=== PATIENT | female | born 1950 | race Caucasian/White ===

== ENCOUNTER 2023-09-20 17:43 | Emergency (ER) | payer MEDICARE, BC, SELFPAY ==
[2023-09-20 17:45] VITALS: BP 124/80
[2023-09-20 18:06] VITALS: BP 112/76
[2023-09-20] MEDS: NSS 1000 IV (18:38)
[2023-09-20 18:50] LABS: % Basophils 0.5 % (0-2); % Eosinophils 0.9 % (0-6); % Immature Granulocytes 0.6 % (0-0.5); % Lymphocytes 11.4 % (20.5-51.1); % Monocytes 10.3 % (1.7-9.3); % Neutrophils 76.3 % (42.2-75.2); Absolute Eosinophils 0.1 10^3/uL (0-0.7); Absolute Lymphocytes 0.7 10^3/uL (1.2-3.4); Absolute Monocytes 0.7 10^3/uL (0.1-0.6); Absolute Neutrophils 4.8 10^3/uL (1.4-6.5); Hematocrit 24.8 % (37.0-47.0); Hemoglobin 7.8 g/dL (12.0-16.0); Mean Corp Hgb Conc. 31.5 g/dL (33.0-37.0); Mean Corpuscular Hgb 29.9 pg (27.0-31.0); Mean Platelet Volume 9.8 fL (7.4-10.4); Nucleated Red Blood Cells % 0 %; Platelet Count 368 10^3/uL (130-400); Red Blood Cell Count 2.61 10^6/uL (4.20-5.40); White Blood Cell Count 6.3 10^3/uL (4.8-10.8)
[2023-09-20 19:01] LABS: ALT (SGPT) 25 U/L (0-35); AST (SGOT) 31 U/L (14-36); Albumin 3.5 g/dl (3.5-5.0); Alkaline Phosphatase 78 U/L (38-126); Blood Urea Nitrogen 44 mg/dl (7-17); Calcium 8.4 mg/dl (8.4-10.2); Carbon Dioxide 26 mmol/L (22-30); Chloride 109 mmol/L (98-107); Estimated Creatinine Clearance 18 ml/min; Glucose 110 mg/dl (70-99); Potassium 5.5 mmol/L (3.5-5.1); Sodium 140 mmol/L (135-145); Total Bilirubin 0.3 mg/dl (0.2-1.3); Total Protein 5.7 g/dl (6.3-8.2); eGFR 19.93
[2023-09-20 19:21] VITALS: BP 120/74
[2023-09-20 19:29] LABS: Urine Albumin 1+ (Neg - Trace); Urine Bilirubin Negative (Negative); Urine Character Very Cloudy (Clear); Urine Color Yellow; Urine Glucose Negative (Negative); Urine Ketone Negative (Negative); Urine Leukocyte 2+ (Negative); Urine Nitrite Negative (Negative); Urine Occult Blood 2+ (Negative); Urine Urobilinogen Negative (Neg - 1+)
[2023-09-20 19:40] LABS: Urine Squamous Cell 0-2 /LPF (Few)
[2023-09-20 19:42] LABS: Urine Bacteria Many (Negative); Urine White Cell >100 /HPF (0-5)
--- NOTE | 2023-09-20 20:53 | ED.GENMED ---
Addendum entered and electronically signed by Deshaun Mann Jr., PA-C 09/23/23 12:52:
Patient's urine culture came back with intermediate sensitivities to Keflex we will switch to cefpodoxime. Cultures were sent to the patient's nursing facility.
Original Note:
History of Present Illness
General
Chief Complaint: Dehydration Symptoms
Source: patient and family
Exam Limitations: dementia
Time Seen by Provider: 09/20/23 18:23
Nursing documentation reviewed up to this point in time: agreed with
Travel History
Have you had any contact with someone who has COVID-19?: No
Do you have any symptoms of coronavirus? Fever > 100 degrees, chills, cough, shortness of breath, sore throat, loss of taste or smell, muscle aches, or headache?: No
History of Present Illness
History of Present Illness:
73-year-old female with past medical history of Alzheimer's dementia, hypertension, renal insufficiency anxiety depression presenting to the emergency department from her nursing facility with concerns of possible dehydration based upon her labs
they are performed prior to arrival at her nursing facility. Here she denies any specific symptoms but does have short-term memory loss from dementia. Denies any chest pain shortness of breath nausea vomiting numbness weakness changes in bowel
movements or urination. Denies any fevers.
Review of Systems
Review of Systems
Allergies reviewed?: Yes
All Other Systems: ROS reviewed and negative except as documented in HPI and ROS
Phy Exam
Physical Exam
Physical Exam:
GENERAL: Alert , in no apparent distress
EYE: pupils equal and reactive
NECK: Supple, no significant adenopathy.
ENT: o/p clr, mmm.
CARDIAC: Regular rate and rhythm .
LUNGS: Clear breath sounds bilaterally, no acute respiratory distress, no wheezes/rales/rhonchi
ABDOMEN: Soft, without focal tenderness, no r/g, no cvat
NEUROLOGICAL: Alert, no focal neuro deficits
SKIN: Warm and dry, skin intact.
MUSCULOSKELETAL: No edema, well perfused.
PSYCH: Normal and appropriate interaction.
Course
Orders/Labs/Results
Orders:
Orders
09/20/23 18:30
Electrocardiogram (*1) Stat
Reason for Study: Abdominal Pain
EKG- Treatment ONCE
0.9% Sodium Chloride 1000 ml [Nss] 1,000 ml IV BOLUS
09/20/23 18:38
Complete Blood Count/With Diff Urgent
Comprehensive Metabolic Panel Urgent
09/20/23 19:19
Urinalysis Reflex To Culture Urgent
Date Specimen was Collected: 09/20/23
Time Specimen was Collected: 19:18
Urine Microscopic Reflex Cult Urgent
Urine Culture Urgent
HAO Source: U
Specimen Description:
Date Specimen was Collected: 09/20/23
Time Specimen was Collected: 19:18
09/20/23 20:53
Cephalexin Monohydrate [Keflex] 500 mg PO NOW STA
Abnormal Lab Results
09/20/23 09/20/23
18:38 19:19
RBC 2.61 L 10^6/uL
(4.20-5.40)
Hgb 7.8 L g/dL
(12.0-16.0)
Hct 24.8 L %
(37.0-47.0)
MCHC 31.5 L g/dL
(33.0-37.0)
Absolute Lymphs (auto) 0.7 L 10^3/uL
(1.2-3.4)
Absolute Monos (auto) 0.7 H 10^3/uL
(0.1-0.6)
Immature Gran % 0.6 H %
(0-0.5)
Neutrophils % 76.3 H %
(42.2-75.2)
Lymphocytes % 11.4 L %
(20.5-51.1)
Monocytes % 10.3 H %
(1.7-9.3)
Potassium 5.5 H mmol/L
(3.5-5.1)
Chloride 109 H mmol/L
(98-107)
BUN 44 H mg/dl
(7-17)
Creatinine 2.5 H mg/dL
(0.6-1.0)
Glucose 110 H mg/dl
(70-99)
Total Protein 5.7 L g/dl
(6.3-8.2)
Ur Occult Blood Reflex 2+ A
(Negative)
Leukocyte Esterase Rfl 2+ A
(Negative)
Urine WBC (Reflex) >100 A /HPF
(0-5)
Urine Bacteria (Reflex) Many A
(Negative)
Urine Albumin (Reflex) 1+ A
(Neg - Trace)
09/20/23 18:38
09/20/23 18:38
Vital Signs
Initial and Last Documented VS:
Initial Vital Signs
Temp Pulse Resp BP Pulse Ox
98.6 F 85 16 124/80 100
09/20/23 17:45 09/20/23 17:45 09/20/23 17:45 09/20/23 17:45 09/20/23 17:45
Last Documented Vital Signs
Temp Pulse Resp BP Pulse Ox
98.6 F 89 14 118/81 96
09/20/23 17:45 09/20/23 21:03 09/20/23 21:03 09/20/23 21:03 09/20/23 21:03
MDM/Problems Addressed
MDM/Problems Addressed:
71-year-old female generally well-appearing no acute distress normal vital signs upon arrival. No specific symptoms that she is mentioning but did have abnormal labs as outpatient. Patient does have CKD has slight been worsening recently.
Additionally had elevated potassium level 5.8 as an outpatient. He had this repeated potassium level 5.5 which is improving from previous additionally patient's hemoglobin at patient's baseline. Urinalysis does appear to be consistent with urinary
tract infection. Patient was treated with antibiotic but otherwise stable for outpatient management. Return precautions given.
*Critical Care Note
Total Time (30-74mins, 75-104mins- exclusive of procedures): Not Applicable
ED Attending Note
-
Portions of this chart may have been created with voice recognition software.� Occasional wrong word or��sound alike� substitutions may have occurred due to the inherent limitations of voice recognition software.
Discharge Plan
Departure
Patient Disposition: Home (Routine Discharge)
Date of Disposition: 09/20/23
Time of Disposition: 20:54
Patient with high blood pressure during this ER visit?: No
Condition: Good
Covid-19: Not Applicable
Discharge Problem:
Acute UTI, Anemia, Acute hyperkalemia
Instructions: Acute Cystitis (DC)
Prescriptions:
New
cephalexin 500 mg capsule
500 mg PO TID 7 Days Qty: 21 0RF
Referrals:
UNKNOWN - PT DOES,NOT KNOW [Family Provider] -
Activity Restrictions/Additional Instructions:
You came to the emergency department today with concerns abnormal labs as additional symptoms. Here you are found to have potential UTI and started on Keflex. Please take this medication 3 times daily for the next 7 days. Additionally had
elevated potassium level but this was improved from your previous outpatient labs. Please have a low potassium diet and repeated labs as an outpatient. Otherwise make sure you stay hydrated. You had anemia but at your baseline. Return to the
emergency department for any worsening, new or concerning symptoms.
Interventions
Interventions:
*Risk Screen - Suicide Last Done: 09/20/23 18:04
*General Assessment Last Done: 09/20/23 17:45
*Neglect/Abuse Screening Last Done: 09/20/23 18:04
ED- Fall Risk Assessment Last Done: 09/20/23 18:04
*ED COVID-19 Vaccine History Last Done: 09/20/23 17:45
*Nursing Disposition Last Done: 09/20/23 21:15
ED- Cardiac Assessment Last Done: 09/20/23 18:04
ED- Neurological Assessment Last Done: 09/20/23 18:04
ED- Pulmonary Assessment Last Done: 09/20/23 18:04
Discharge Date and Time
Discharge Date/Time: 09/20/23 21:16
[2023-09-20] MEDS: KEFLEX 500 MG PO (21:02)
[2023-09-20 21:03] VITALS: BP 118/81
== END 2023-09-20 21:16 | disposition home or self-care (01) ==
LOC: EMR 17:43
PROVIDERS: Physician Assistant; EMERGENCY PHYSICIAN Emergency Medicine
DX: N39.0 Urinary tract infection, site not specified (principal); D64.9 Anemia, unspecified; E87.5 Hyperkalemia; G30.9 Alzheimer's disease, unspecified; F02.80 Dementia in other diseases classified elsewhere, unspecified severity, without behavioral disturbance, psychotic disturbance, mood disturbance, and anxiety; I12.9 Hypertensive chronic kidney disease with stage 1 through stage 4 chronic kidney disease, or unspecified chronic kidney disease; N18.9 Chronic kidney disease, unspecified
CPT/HCPCS: 99283; 80053; 81003; 81015; 85025; 87077; 87086; 87186; 93005